=== PATIENT | male | born 1985 | race Two or more races ===

== ENCOUNTER 2021-02-04 20:24 | Emergency (ER) | payer SELFPAY ==
[~2021-02-04] VITALS: Ht 172.7 cm; Wt 93.2 kg
[2021-02-04 21:00] LABS: BASOPHILS % (AUTO) 1 % (0-1); EOSINOPHILS % (AUTO) 1 % (1-7); LYMPHOCYTES % (AUTO) 24 % (22-44); MEAN CORPUSCULAR HEMOGLOBIN 30.7 pg (27.5-34.5); MEAN CORPUSCULAR HGB CONC 33.8 g/dL (33.2-36.2); MEAN PLATELET VOLUME 10.3 fL (7.4-10.4); MONOCYTES % (AUTO) 6 % (2-9); NEUTROPHILS % (AUTO) 69 % (42-75); PLATELET COUNT 200 x10^3/uL (130-400); RED BLOOD COUNT 5.61 x10^6/uL (4.38-5.82); RED CELL DISTRIBUTION WIDTH 13.9 % (9.4-14.8)
--- NOTE | 2021-02-04 21:07 | NUR ---
pt in [place]
[2021-02-04 21:08] LABS: ALBUMIN 3.9 g/dL (3.4-5.0); ANION GAP 7 mmol/L (5-15); CALCIUM 9.1 mg/dL (8.5-10.1); CHLORIDE 109 mmol/L (98-107); CREATININE 1.17 mg/dL (0.7-1.3)
[2021-02-04 21:12] LABS: MICROSCOPIC INDICATED
[2021-02-04 21:55] VITALS: BP 120/84
== END 2021-02-04 21:58 | disposition home or self-care (01) ==
LOC: ED 21:50
DX: R30.0 Dysuria (principal); R31.0 Gross hematuria; R10.9 Unspecified abdominal pain
CPT/HCPCS: 36415; 74176; 80048; 81001; 82040; 85025; 87086; 99284